=== PATIENT | female | born 1965 | race Hispanic/Latino ===

== ENCOUNTER 2017-01-20 08:00 | Day surgery (SDC) | payer MEDICAID ==
[2016-05-29 09:03] VITALS: BMI 31.6
[2017-01-20] MEDS ORDERED: Lactated Ringer's 500 ML IV ONE (08:54)
[2017-01-20] MEDS ORDERED: Propofol 10 mg/ml Inj (20 ML) ONE (09:26)
[2017-01-20] MEDS ORDERED: Lidocaine 2% MPF (5 ml) Inj ONE (09:27)
[2017-01-20 11:45] VITALS: TEMP 97
[2017-01-20 12:00] VITALS: BP 91/56; PULSE 54; RESP 20; O2SAT 100
== END 2017-01-20 12:16 | disposition home or self-care (01) ==
LOC: H.ENDO 08:00
PROVIDERS: ATTEND Internal Medicine Gastroenterology
DX: Z12.11 Encounter for screening for malignant neoplasm of colon (principal); K64.8 Other hemorrhoids; K30 Functional dyspepsia; R12 Heartburn; K29.70 Gastritis, unspecified, without bleeding
CPT/HCPCS: 43239; 45378; 88305; J2704; J7120

== ENCOUNTER 2017-04-06 08:40 | Emergency (ER) | payer MEDICAID ==
[2017-04-06 08:54] VITALS: BP 102/53; PULSE 58; TEMP 97; O2SAT 98; BMI 23.6
[2017-04-06 09:13] VITALS: RESP 18
--- NOTE | 2017-04-06 10:28 | CT ---
PROCEDURE: CT HEAD WITHOUT CONTRAST. HISTORY: Right ear tinnitus COMPARISON: . . Comparison made with prior CT scan brain 09/20/2015. TECHNIQUE: Axial computed tomography images were obtained through the head/brain without intravenous contrast. Radiation dose: Total exam DLP = 874.1 mGy-cm. This CT exam was performed using one or more of the following dose reduction techniques: Automated exposure control, adjustment of the mA and/or kV according to patient size, and/or use of iterative reconstruction technique. FINDINGS: HEMORRHAGE: No intracranial hemorrhage. BRAIN: No mass effect or edema. No atrophy or chronic microvascular ischemic changes. VENTRICLES: No obstructive hydrocephalus CALVARIUM: Calvarium appears intact. PARANASAL SINUSES: Paranasal sinuses well-developed and currently well-aerated. . No significant inflammatory changes. MASTOID AIR CELLS: Mastoid air complexes well-developed and currently well-aerated. . No inflammatory changes. OTHER FINDINGS: Orbits and contents grossly unremarkable. IMPRESSION: No acute intracranial hemorrhage.
--- NOTE | 2017-04-06 10:59 | ED PDOC ---
HPI: General Adult Time Seen by Provider: 04/06/17 09:18 Chief Complaint (Nursing): ENT Problem Chief Complaint (Provider): ENT problem History Per: Patient History/Exam Limitations: no limitations Onset/Duration Of Symptoms: Days (x2 weeks) Current Symptoms Are (Timing): Still Present Pain Scale Rating Of: 0 Location: Right ear Additional Complaint(s): Nina Stauffer is a 51 year old female, with no past medical history, who presents to the emergency department complaining of right ear ringing, loud sounds, and dizziness onset for x2 weeks. Patient states the dizziness is worst with ambulation. She reports hearing noises louder from what they should be. She denies any ear pain. No further medical complaints. PMD: Dr. Ingram at [place] Past Medical History Reviewed: Historical Data, Nursing Documentation, Vital Signs Vital Signs: Last Vital Signs Temp 97 F L 04/06/17 09:11 Pulse 58 L 04/06/17 09:11 Resp 18 04/06/17 09:11 BP 102/53 L 04/06/17 09:11 Pulse Ox 98 04/06/17 11:38 - Medical History PMH: Anxiety, Asthma, Bipolar Disorder, Depression, Kidney Stones, Chronic Kidney Disease Denies: HIV - Surgical History Surgical History: Cholecystectomy - Family History Family History: States: Diabetes, Hypertension, Other Other Family History: Cancer - Social History Ex-Smoker (has not smoked in the last 12 months): Yes Alcohol: None Drugs: Denies - Home Medications Home Medications: Ambulatory Orders Medication Instructions Recorded Aspirin [Ecotrin] 81 mg PO DAILY 09/20/15 Clonazepam [Klonopin] 2 mg PO HS 09/20/15 - Allergies Allergies/Adverse Reactions: Allergies Allergy/AdvReac Type Severity Reaction Status Date / Time Penicillins Allergy SWELLING Verified 01/20/17 09:03 chocolate flavor AdvReac Mild HEADACHE Verified 01/20/17 09:03 coffee (Coffea arabica) AdvReac Mild HEADACHE Verified 01/20/17 09:03 [coffee] Review of Systems ROS Statement: Except As Marked, All Systems Reviewed And Found Negative ENT: Positive for: Other (loud sounds, and ringing noise). Negative for: Ear Pain (right) Neurological: Positive for: Dizziness Physical Exam - Reviewed Nursing Documentation Reviewed: Yes Vital Signs Reviewed: Yes - Physical Exam Appears: Positive for: No Acute Distress Head Exam: Positive for: ATRAUMATIC, NORMAL INSPECTION Skin: Positive for: Normal Color, Warm, Dry Eye Exam: Positive for: Normal appearance, EOMI ENT: Positive for: Normal ENT Inspection (Ear canal normal), TM Is/Are (normal) . Negative for: Sinus Pain/Drainage, Nasal Congestion, Pharyngeal Erythema, Tonsillar Exudate, Tonsillar Swelling Neck: Positive for: Painless ROM, Supple Cardiovascular/Chest: Positive for: Regular Rate, Rhythm Respiratory: Negative for: Respiratory Distress Extremity: Positive for: Normal ROM Neurologic/Psych: Positive for: Alert, Oriented - ECG O2 Sat by Pulse Oximetry: 98 (RA) Pulse Ox Interpretation: Normal Medical Decision Making Medical Decision Making: Initial Impression: dizziness and tinnitus ear. Differential includes but not limited to: acoustic neuroma. Middle ear infection and foreign bodies excluded by physical exam. Initial Plan: --IAC w/o contrast [CT] --Head w/o contrast [CT] --reevaluation [address] FINDINGS: HEMORRHAGE: No intracranial hemorrhage. BRAIN: No mass effect or edema. No atrophy or chronic microvascular ischemic changes. VENTRICLES: No obstructive hydrocephalus CALVARIUM: Calvarium appears intact. PARANASAL SINUSES: Paranasal sinuses well-developed and currently well-aerated. . No significant inflammatory changes. MASTOID AIR CELLS: Mastoid air complexes well-developed and currently well-aerated. . No inflammatory changes. OTHER FINDINGS: Orbits and contents grossly unremarkable. IMPRESSION: No acute intracranial hemorrhage. [address] FINDINGS: RIGHT TEMPORAL BONE: The mastoid air complexes well-developed and currently well-aerated. Middle ear canals and contents unremarkable. No evidence of soft tissue masses. Ossicular chains and drum spur is intact. The inner ear structures are unremarkable. Right and left porous acusticus and remaining internal auditory canals are symmetric. No obvious soft tissue masses are seen within the CP angle cisterns or internal auditory. IMPRESSION: Unremarkable non contrast enhanced CT of the temporal bones as detailed above. . Scribe Attestation: Documented by Kevin De Los Santos, acting as a scribe for Sarah Rossi MD Provider Scribe Attestation: All medical record entries made by the Scribe were at my direction and personally dictated by me. I have reviewed the chart and agree that the record accurately reflects my personal performance of the history, physical exam, medical decision making, and the department course for this patient. I have also personally directed, reviewed, and agree with the discharge instructions and disposition. Disposition - Clinical Impression Clinical Impression: Tinnitus, right ear - Patient ED Disposition Is Patient to be Admitted: No Counseled Patient/Family Regarding: Studies Performed, Diagnosis, Need For Followup - Disposition Referrals: Jono Seth MD [Staff Provider] - Kenneth Craig MD [Staff Provider] - Disposition Time: 11:15 Condition: GOOD Additional Instructions: Follow up with Ear doctor in 3 days. Instructions: Tinnitus (ED) Forms: [employer] (French)
--- NOTE | 2017-04-06 11:02 | CT ---
HISTORY: Right ear tinnitus PROCEDURE: CT scan of the temporal bones dated the 04/06/2017 COMPARISON: Correlation made with concurrent CT scan brain TECHNIQUE: High resolution helical/transaxial images of the temporal bones were obtained. Coronal and sagittal reformats were generated. Radiation dose: Total exam DLP = 840.48 mGy-cm. This CT exam was performed using one or more of the following dose reduction techniques: Automated exposure control, adjustment of the mA and/or kV according to patient size, and/or use of iterative reconstruction technique. FINDINGS: RIGHT TEMPORAL BONE: The mastoid air complexes well-developed and currently well-aerated. Middle ear canals and contents unremarkable. No evidence of soft tissue masses. Ossicular chains and drum spur is intact. The inner ear structures are unremarkable. Right and left porous acusticus and remaining internal auditory canals are symmetric. No obvious soft tissue masses are seen within the CP angle cisterns or internal auditory. IMPRESSION: Unremarkable non contrast enhanced CT of the temporal bones as detailed above. .
== END 2017-04-06 11:46 | disposition home or self-care (01) ==
LOC: H.ER 08:40
DX: H93.11 Tinnitus, right ear (principal); R42 Dizziness and giddiness

== ENCOUNTER 2017-12-01 07:14 | Emergency (ER) | payer MEDICAID ==
[2017-12-01 07:20] VITALS: BMI 26.6
[2017-12-01 07:23] VITALS: O2SAT 100
--- NOTE | 2017-12-01 08:44 | ED PDOC ---
HPI: Abdomen Time Seen by Provider: 12/01/17 07:30 Chief Complaint (Nursing): Abdominal Pain Chief Complaint (Provider): Abdominal Pain History Per: Patient History/Exam Limitations: no limitations Onset/Duration Of Symptoms: Other (2 months) Current Symptoms Are (Timing): Still Present Location Of Pain/Discomfort: Epigastric Quality Of Discomfort: Sharp Associated Symptoms: Nausea, Vomiting, Constipation. denies: Fever, Diarrhea, Back Pain, Chest Pain Last Bowel Movement: Yesterday Additional Complaint(s): 52 year old female presents to the ED for an evaluation of right upper quadrant abdominal pain onset for 2 months. Reports the pain is sharp with associated symptoms of constipation, nausea and vomiting. Her last bowel movement was yesterday after taking Laxative medication. Her appetite has decreased and she was advised to visit the ED by her PMD. Patient also had a bariatric surgery 10 years ago. Denies fever, shortness of breath, chest pain, arm pain, cough, urinary problems or incontinence. PMD: Nataly Holloway ([place]) Past Medical History Reviewed: Historical Data, Nursing Documentation, Vital Signs Vital Signs: Last Vital Signs Temp 98.2 F 12/01/17 07:20 Pulse 54 L 12/01/17 07:20 Resp 18 12/01/17 07:20 BP 108/61 12/01/17 07:20 Pulse Ox 100 12/01/17 09:25 - Medical History PMH: Anxiety, Asthma, Bipolar Disorder, Depression, Kidney Stones Denies: HIV - Surgical History Surgical History: Cholecystectomy Other surgeries: bariatric surgery 10 years ago - Family History Family History: States: Unknown Family Hx, Diabetes, Hypertension - Social History Current smoker - smoking cessation education provided: No Alcohol: None Drugs: Denies - Home Medications Home Medications: Ambulatory Orders Medication Instructions Recorded Aspirin [Ecotrin] 81 mg PO DAILY 09/20/15 Clonazepam [Klonopin] 2 mg PO HS 09/20/15 Famotidine [Pepcid] 20 mg PO DAILY PRN #6 tab 12/01/17 Ibuprofen [Motrin] 600 mg PO TID 7 Days tab 12/01/17 - Allergies Allergies/Adverse Reactions: Allergies Allergy/AdvReac Type Severity Reaction Status Date / Time Penicillins Allergy SWELLING Verified 01/20/17 09:03 chocolate flavor AdvReac Mild HEADACHE Verified 01/20/17 09:03 coffee (Coffea arabica) AdvReac Mild HEADACHE Verified 01/20/17 09:03 [coffee] Review of Systems ROS Statement: Except As Marked, All Systems Reviewed And Found Negative Constitutional: Negative for: Fever Cardiovascular: Negative for: Chest Pain Respiratory: Negative for: Shortness of Breath Gastrointestinal: Positive for: Nausea, Vomiting, Abdominal Pain, Constipation Genitourinary Female: Negative for: Dysuria, Frequency, Incontinence Musculoskeletal: Negative for: Arm Pain Physical Exam - Reviewed Nursing Documentation Reviewed: Yes Vital Signs Reviewed: Yes - Physical Exam Appears: Positive for: Non-toxic, No Acute Distress Head Exam: Positive for: ATRAUMATIC, NORMAL INSPECTION, NORMOCEPHALIC Skin: Positive for: Normal Color, Warm, Dry Eye Exam: Positive for: Normal appearance ENT: Positive for: Normal ENT Inspection Neck: Positive for: Normal, Painless ROM, Supple. Negative for: Decreased ROM Cardiovascular/Chest: Positive for: Regular Rate, Rhythm. Negative for: Murmur Respiratory: Positive for: Normal Breath Sounds. Negative for: Decreased Breath Sounds, Wheezing, Respiratory Distress Gastrointestinal/Abdominal: Positive for: Soft, Tenderness (epigastric and periumbilical) Back: Positive for: Normal Inspection. Negative for: L CVA Tenderness, R CVA Tenderness Extremity: Positive for: Normal ROM. Negative for: Tenderness, Pedal Edema, Deformity Neurologic/Psych: Positive for: Alert, Oriented (x3), Gait (steady). Negative for: Motor/Sensory Deficits - Laboratory Results Result Diagrams: 12/01/17 08:50 12/01/17 08:50 Interpretation Of Abn Labs: no acute Urine dip results: Negative for: Leukocyte Esterase, Nitrate - ECG O2 Sat by Pulse Oximetry: 100 (RA) Pulse Ox Interpretation: Normal - CT Scan/US ct Other Rad Studies (CT/US): Read By Radiologist Other Rad Interpretation: no acute - Progress ED Course And Treament: 1351: Stable. AAOx3. Pain free. Tolerated PO. FU with pcp. Medical Decision Making Medical Decision Making: Time: 825 Initial Impression: abdominal pain Initial Plan: --Abdomen Pelvis PO & IV Contrast [CT] --CMP --Lipase --Urine Dip --CBC w/ Differential --Normal Saline 1000 mls/hr --Omnipaque 240 (50ml) --Pep 20mg --Toradol 15mg --Reevaluation Scribe Attestation: Documented by Monae Dee, acting as a scribe for Jan Marie MD Provider Scribe Attestation: All medical record entries made by the Scribe were at my direction and personally dictated by me. I have reviewed the chart and agree that the record accurately reflects my personal performance of the history, physical exam, medical decision making, and the department course for this patient. I have also personally directed, reviewed, and agree with the discharge instructions and disposition. Disposition - Clinical Impression Clinical Impression: Abdominal pain - Patient ED Disposition Is Patient to be Admitted: No Counseled Patient/Family Regarding: Studies Performed, Diagnosis, Need For Followup, Rx Given - Disposition Referrals: [facility] [Outside] - 12/03/17 Disposition: Routine/Home Disposition Time: 13:52 Condition: STABLE Additional Instructions: Return if not better in 3 days. Prescriptions: Famotidine [Pepcid] 20 mg PO DAILY PRN #6 tab PRN Reason: Pain Ibuprofen [Motrin] 600 mg PO TID 7 Days tab Instructions: Acute Abdomen (Belly Pain), Adult (DC) Forms: [employer] (Italian)
[2017-12-01] MEDS ORDERED: Iohexol 240 (50 ml) ONE (09:06)
[2017-12-01 09:09] LABS: BASO # 0.1 K/uL (0.0-0.2); BASO % 0.9 % (0.0-2.0); EOS # 2.2 K/uL (0.0-0.7); EOS % 27.8 % (0.0-4.0); HEMOGLOBIN 12.4 g/dL (12.0-16.0); LYMPH # 2.1 K/uL (1.0-4.3); LYMPH % 26.8 % (20.0-40.0); MEAN CELL VOLUME 91.3 fl (81.0-99.0); MEAN CORPUSCULAR HEMOGLOBIN 30.1 pg (27.0-31.0); MEAN PLATELET VOLUME 8.6 fl (7.2-11.7); MONO # 0.4 K/uL (0.0-0.8); MONO % 5.5 % (0.0-10.0); PLATELET COUNT 184 K/uL (130-400); RED CELL DISTRIBUTION WIDTH 13.8 % (11.5-14.5); WHITE BLOOD COUNT 7.7 K/uL (4.8-10.8)
[2017-12-01] MEDS: Iohexol 240 (50 ml) PO ONE (09:12)
[2017-12-01] MEDS: Sodium Chloride 0.9% 1,000 ML IV STA (09:14)
[2017-12-01 09:18] LABS: BLOOD UREA NITROGEN 12 mg/dl (7-17); GFR AFRICAN-AMERICAN > 60; GFR NON-AFRICAN AMERICAN > 60
[2017-12-01 09:19] LABS: ALB/GLOB RATIO 1.4 (1.0-2.1); ALBUMIN 3.7 g/dL (3.5-5.0); ALT/SGPT 51 U/L (9-52); AST/SGOT 45 U/L (14-36)
[2017-12-01 10:07] LABS: BANDS 1 % (0-2); BASOPHIL 1 % (0-2); EOSINOPHIL 25 % (0-7); LYMPHOCYTE 33 % (20-50); MONOCYTE 2 % (0-10); NEUTROPHIL 36 % (42-75); PLATELET ESTIMATE NORMAL (NORMAL); REACTIVE LYMPHOCYTES 2 % (0-0); TOTAL CELLS COUNTED 100
[2017-12-01] MEDS ORDERED: Iohexol 300 100 ML IJ ONE (12:51)
[2017-12-01] MEDS ORDERED: Sodium Chloride 0.9% 50 ML IV ONE (12:52)
--- NOTE | 2017-12-01 13:29 | CT ---
Date of service: 12/01/2017 PROCEDURE: CT Abdomen and Pelvis with contrast HISTORY: Abdominal pain COMPARISON: None. TECHNIQUE: CT scan of the abdomen and pelvis was performed after 0 administration of intravenous contrast. Oral contrast was administered. Coronal and sagittal reformatted images were obtained. Contrast dose: 96 cc Omnipaque 300 Radiation dose: Total exam DLP = 548.75 mGy-cm. This CT exam was performed using one or more of the following dose reduction techniques: Automated exposure control, adjustment of the mA and/or kV according to patient size, and/or use of iterative reconstruction technique. FINDINGS: LOWER THORAX: There is linear scarring in the right middle lobe and lingula. The lung bases are clear. There is a 4 mm peripheral tiny nodule in the right lung base. LIVER: Mild hepatomegaly and fatty liver. No gross lesion or ductal dilatation. GALLBLADDER AND BILE DUCTS: Surgically absent. PANCREAS: Normal in size with homogeneous enhancement. No gross lesion or ductal dilatation. SPLEEN: Normal in size and appearance. ADRENALS: No discrete nodule. KIDNEYS AND URETERS: Normal in size with homogeneous enhancement. No hydronephrosis. No solid mass. There is a small simple cyst in the upper pole of the left kidney. VASCULATURE: Unremarkable. No aortic aneurysm. BOWEL: Postsurgical changes of gastric bypass. The small bowel loops are normal in caliber. The colon is unremarkable. APPENDIX: Normal appendix. PERITONEUM: No free fluid. No free air. LYMPH NODES: No enlarged lymph nodes. BLADDER: Well distended and normal in appearance. REPRODUCTIVE: The uterus is normal in size with 2 fibroids in the anterior wall to the left. BONES: No acute fracture.There is diffuse bone demineralization and multilevel degenerative changes in the spine. OTHER FINDINGS: None. IMPRESSION: Status post gastric bypass surgery, no evidence for bowel dilatation or obstruction. Mild hepatomegaly and fatty liver.
[2017-12-01 14:13] VITALS: BP 125/74; PULSE 74; RESP 19; TEMP 98.7
== END 2017-12-01 14:19 | disposition home or self-care (01) ==
LOC: H.ER 07:14
DX: R10.13 Epigastric pain (principal); R11.2 Nausea with vomiting, unspecified; R19.7 Diarrhea, unspecified; Z88.0 Allergy status to penicillin; K76.0 Fatty (change of) liver, not elsewhere classified
CPT/HCPCS: 74177; 80053; 81025; 83690; 85025; 96374; 96375; 99284; J1885; J2405; J7030; Q9966; Q9967